=== PATIENT | male | born 1965 | race Hispanic/Latino ===

== ENCOUNTER 2022-03-23 11:37 | Outpatient (CLI) | payer OTHER, SELFPAY ==
--- NOTE | 2022-03-23 11:59 | ECG_ITS ---
Measurements Intervals [place] Rate: 76 P: MA: 0 QRS: 1 QRSD: 90 T: -4 QT: 380 QTc: 428 Interpretive Statements ATRIAL FIBRILLATION ABNORMAL RHYTHM ECG NO PREVIOUS ECG AVAILABLE FOR COMPARISON Electronically Signed On 03-23-2022 17:08:48 CDT by Carlos Gordon M.D.
[2022-03-23 12:45] LABS: Anion Gap 5 mmol/L (8-16); Blood Urea Nitrogen 15 mg/dL (9-20); Carbon Dioxide 25 mmol/L (22-30); Chloride 103 mmol/L (98-107); Estimated Glomerular Filt Rate > 60; Glucose 99 mg/dL (65-110); Potassium 4.2 mmol/L (3.4-5.0); Sodium 133 mmol/L (137-145)
== END 2022-03-23 11:38 | disposition home or self-care (01) ==
LOC: ANHSURGERY 11:41
PROVIDERS: Anesthesiology; PCP Family Medicine; Visit Provider Orthopaedic Surgery
DX: I10 Essential (primary) hypertension (principal); Z79.899 Other long term (current) drug therapy; Z01.818 Encounter for other preprocedural examination
CPT/HCPCS: 36415; 80048; 93005

== ENCOUNTER 2022-06-18 10:03 | Emergency (ER) | payer OTHER, SELFPAY ==
[2022-06-18 10:13] VITALS: BP 156/98; PULSE 80; RESP 16; TEMP 36.5; O2SAT 99
--- NOTE | 2022-06-18 11:44 | ED.DENTAL ---
HPI - Dental/Oral General Chief complaint: Dental/Oral Stated complaint: BLEEDING GUMS Time Seen by Provider: 06/18/22 10:19 Source: patient Mode of arrival: ambulatory Limitations: no limitations History of Present Illness HPI Narrative: 56-year-old male presents today with complaints of bleeding from a cracked tooth. Patient states he broke his tooth yesterday when he was chewing on something. He put some sort of paste over his tooth. Denies any pain. States that in the middle the night last night it started bleeding and has not stopped. Patient is currently on Eliquis for atrial fibrillation. No complaints of any other bleeding. Related Data Home Medications Medication Instructions Recorded Confirmed amlodipine 10 mg tablet 10 mg PO DAILY 03/18/22 03/18/22 apremilast 30 mg tablet (Otezla) 30 mg PO BID 03/18/22 03/18/22 folic acid 1 mg tablet 3 mg PO DAILY 03/18/22 03/18/22 hydrochlorothiazide 25 mg tablet 25 mg PO QAM 03/18/22 03/18/22 ibuprofen 600 mg tablet 600 mg PO QID PRN Pain 03/18/22 03/18/22 losartan 50 mg tablet 50 mg PO QAM 03/18/22 03/18/22 Allergies Allergy/AdvReac Type Severity Reaction Status Date / Time No Known Allergies Allergy Unverified 03/18/22 14:34 Review of Systems Review of Systems: CONSTITUTIONAL: Denies fever, chills, or sweats. EYES: Denies visual changes, redness, or discharge. ENT: Bleeding tooth. Denies rhinorrhea, congestion, sore throat, or otalgia. CARDIOVASCULAR: Denies chest pain, palpitations, or edema. RESPIRATORY: Denies cough or dyspnea. NEUROLOGIC: Denies headache, numbness, dizziness, or weakness. PSYCHIATRIC: Denies anxiety or depression. [facility] Social History Social History Smoking status: Never smoker Spiritual care concerns: No Exam Const: General: healthy appearing and no acute distress HENMT: Head: normal to inspection Ears: external ears normal Face and sinus: normal facial exam Teeth and gingiva: abnormal tooth and associated gingiva lower left third molar other (Bleeding noted at gum of tooth. Appears to be some paste in the tooth that patient has stuck there. Unable to remove. Unable to see if pulp was previously exposed. Tooth does appear fractured.) Eyes: Conjunctivae: conjunctivae normal Resp: Effort & Inspection: normal respiratory effort Cardio: Rate: regular rate Skin: General skin exam: normal color Neuro: General: patient oriented x3 Course Course Emergency Course: Bleeding slowed after surgicel applied. Patient and family instructed on removal after bleeding has completely stopped. All voiced understanding. Vital Signs Vital signs: Vital Signs Temperature 97.7 F 06/18/22 10:13 Pulse Rate 80 06/18/22 10:13 Respiratory Rate 16 06/18/22 10:13 Blood Pressure 156/98 H 06/18/22 10:13 Pulse Oximetry 99 06/18/22 10:13 Oxygen Delivery Room Air 06/18/22 10:13 Temperature 97.7 F 06/18/22 10:13 Pulse Rate 80 06/18/22 10:13 Respiratory Rate 16 06/18/22 10:13 Blood Pressure 156/98 H 06/18/22 10:13 Pulse Oximetry 99 06/18/22 10:13 Oxygen Delivery Room Air 06/18/22 10:13 MDM - Dental/Oral MDM Narrative Medical decision making narrative: 56-year-old male HPI as noted. Differentials as below. Patient currently on Eliquis for history of A. fib. Which may be due to the difficulty with getting bleeding to stop. Patient with cracked tooth. Bleeding was slowed with Surgicel. Patient to be discharged and instructed to remove when bleeding stops. Did instruct patient on what to do if rebleeding occurs. Patient is aware to follow-up with dentist JUANA. Differential Diagnosis Differential diagnosis: Likely dental caries, toothache, dental abscess and fracture of tooth Medical Records Attestation: I reviewed the patient's medical records. Discharge Plan Discharge Clinical Impression: Fracture of tooth, Toothache Patient Dispositio
[2022-06-18] MEDS: AMOXICILLIN/CLAVULANATE K 875-125 MG TAB 1 TABLET PO (12:47)
== END 2022-06-18 12:52 | disposition home or self-care (01) ==
PROVIDERS: Emergency Provider Nurse Practitioner Family; PCP Family Medicine
DX: K03.81 Cracked tooth (principal); I48.91 Unspecified atrial fibrillation; Z79.01 Long term (current) use of anticoagulants
CPT/HCPCS: 99283; A9270

== ENCOUNTER 2022-06-30 16:22 | Emergency (ER) | payer OTHER, SELFPAY ==
[2022-06-30] VITALS (11 sets, daily range): BP systolic 131–160; BP diastolic 87–96; PULSE 63–84; RESP 13–20; TEMP 37; O2SAT 98–100
--- NOTE | ~2022-06-30 | XR_ITS ---
XR chest 2V DATE: 06/30/2022 18:21 INDICATION: Left chest pain, numbness and tingling. Cold upper extremities. TECHNIQUE: PA and lateral views COMPARISON: None FINDINGS: Normal heart size. Is aortic tortuosity. No hilar or mediastinal enlargement. No pulmonary infiltrate or consolidation, pleural effusion or pulmonary vascular congestion or pneumo thorax is detected. Included skeletal structures are unremarkable. IMPRESSION: No active cardiopulmonary disease Reviewed, dictated and finalized at location B. 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
--- NOTE | 2022-06-30 16:27 | ECG_ITS ---
Measurements Intervals [place] Rate: 70 P: -1 FL: 185 QRS: 2 QRSD: 103 T: -3 QT: 382 QTc: 414 Interpretive Statements SINUS RHYTHM WITH OCCASIONAL SUPRAVENTRICULAR PREMATURE COMPLEXES COMPARED TO ECG 03/23/2022 12:27:08 SINUS RHYTHM NOW PRESENT Electronically Signed On 07-01-2022 14:46:25 [employer] by Solis Multani M.D.
[2022-06-30 16:47] LABS: Basophils Percent Auto 0.4 % (0.2-1.2); Eosinophils Absolute Auto 0.1 K/mm3 (0-0.3); Eosinophils Percent Auto 1.7 % (0-4.4); Hematocrit 45.1 % (42.0-52.0); Hemoglobin 15.5 g/dL (14.0-18.0); Immature Granulocyte Absolute 0.01 K/mm3 (0.00-0.031); Immature Granulocyte Percent A 0.1 % (0-0.5); Lymphocytes Absolute Auto 2.63 K/mm3 (0.9-3.2); Lymphocytes Percent Auto 36.9 % (18.3-44.2); Mean Corpuscular HGB Conc 34.4 g/dl (32-36); Mean Corpuscular Hemoglobin 30.6 pg (26-34); Mean Platelet Volume 9.5 fl (7.4-10.4); Monocytes Absolute Auto 0.4 K/mm3 (0.1-0.6); Monocytes Percent Auto 5.8 % (2.6-8.5); Neutrophils Absolute Auto 3.9 K/mm3 (1.3-6.7); Neutrophils Percent Auto 55.1 % (45.5-73.1); Platelet Count Result 211 k/mm3 (150-375); Red Blood Count 5.07 M/mm3 (4.6-6.20); Red Cell Distribution Width 12.9 % (11.5-14.5); White Blood Count 7.1 K/mm3 (4.5-10.0)
[2022-06-30 16:56] LABS: INR 1.1; Prothrombin Time 13.5 Seconds (11.1-14.7)
[2022-06-30 16:58] LABS: Partial Thromboplastin Time 34.5 SECONDS (22.3-36.8)
[2022-06-30 17:01] LABS: Alanine Aminotransferase 39 U/L (6-50); Albumin Level 5.1 g/dL (3.5-5.1); Alkaline Phosphatase 82 U/L (38-126); Anion Gap 9 mmol/L (8-16); Aspartate Amino Transferase 36 U/L (17-59); Bilirubin,Total 0.6 mg/dL (0.2-1.3); Blood Urea Nitrogen 16 mg/dL (9-20); Calcium 9.2 mg/dL (8.4-10.2); Carbon Dioxide 25 mmol/L (22-30); Chloride 101 mmol/L (98-107); Estimated CRCL calculation 92 ml/min; Estimated Glomerular Filt Rate > 60; Glucose 99 mg/dL (65-110); Lipase 76 U/L (23-300); Potassium 3.9 mmol/L (3.4-5.0); Sodium 135 mmol/L (137-145)
[2022-06-30 17:10] LABS: Troponin I < 0.012 ng/mL (0.000-0.034)
--- NOTE | 2022-06-30 19:00 | ED.CHESTPAIN ---
HPI - Chest Pain General Chief Complaint: Chest Pain Stated Complaint: mult c/o Time Seen by Provider: 06/30/22 18:26 Source: patient Mode of arrival: ambulatory Limitations: no limitations History of Present Illness HPI narrative: 56-year-old male presents today with complaints of dizziness and lightheadedness then chest pain and then numbness to the hands. Patient says he has had 3 episodes of this in the last week. Patient states today the episode lasted about 1 hour. Patient states he was sitting when it started. Patient does note tachypnea after he starts getting dizzy. Patient does endorse he was recently at [facility]. He is currently seeing a color sprayer from there. States within the last 2 weeks he had a test done where they had him walk and hooked him up to an EKG machine. I assume patient did have a stress test done. When patient was asked what the results were he stated he was not 100% sure but they set up follow-up appointment for him in 6 months. Patient denies any diaphoresis at the time. Patient denies any cough, runny nose, sore throat, nausea vomiting diarrhea, denies any recent illnesses. Related Data Home Medications Medication Instructions Recorded Confirmed amlodipine 10 mg tablet 10 mg PO DAILY 03/18/22 03/18/22 apremilast 30 mg tablet (Otezla) 30 mg PO BID 03/18/22 03/18/22 folic acid 1 mg tablet 3 mg PO DAILY 03/18/22 03/18/22 hydrochlorothiazide 25 mg tablet 25 mg PO QAM 03/18/22 03/18/22 ibuprofen 600 mg tablet 600 mg PO QID PRN Pain 03/18/22 03/18/22 losartan 50 mg tablet 50 mg PO QAM 03/18/22 03/18/22 Allergies Allergy/AdvReac Type Severity Reaction Status Date / Time No Known Allergies Allergy Verified 06/30/22 18:06 Review of Systems Review of Systems: CONSTITUTIONAL: Denies fever, chills, or sweats. EYES: Denies visual changes, redness, or discharge. ENT: Denies rhinorrhea, congestion, sore throat, or otalgia. CARDIOVASCULAR: Chest pain with palpitations. denies edema. RESPIRATORY: Denies cough or dyspnea. GASTROINTESTINAL: Denies abdominal pain, nausea, vomiting, or diarrhea. GENITOURINARY: Denies dysuria or hematuria. SKIN: Denies rash or itching. MUSCULOSKELETAL: Denies back pain, joint pain, or myalgia. NEUROLOGIC: Dizziness. Denies headache, numbness, or weakness. PSYCHIATRIC: Denies anxiety or depression. [facility] Social History Social History Smoking status: Never smoker Spiritual care concerns: No Exam Narrative: GENERAL: Well-appearing, well-nourished, and in no acute distress. HEAD: Normocephalic, atraumatic. EYES: PERRLA and EOMI. ENT: Nares clear, no rhinorrhea or epistaxis. Mucous membranes moist. Oropharynx without tonsillar hypertrophy exudate or other lesions. Bilateral TMs pearly hernandez nonbulging NECK: Supple. No adenopathy or masses. No carotid bruits or JVD CHEST: Clear to auscultation. No respiratory distress. No wheezes rales or rhonchi HEART: Regular rate and rhythm. No murmur heard. Normal peripheral pulses. ABDOMEN: Soft, nontender, nondistended, normal active bowel sounds. EXTREMITIES: Normal range of motion. No edema. SKIN: Warm, dry, no rash. NEURO: No focal deficits. Alert and oriented x3. PSYCH: Normal mood and affect. Course Reevaluation(s) Reevaluation #1: Patient with improvement after IV fluids. Patient has not had any chest pain or palpitations during his stay here. Patient will be discharged home. Patient does have an appointment with primary care tomorrow and is instructed to follow-up with cardiology 2. Date: 06/30/22 Time: 20:50 Vital Signs Vital signs: Vital Signs Temperature 98.6 F 06/30/22 16:25 Pulse Rate 78 06/30/22 16:25 Respiratory Rate 20 06/30/22 16:25 Blood Pressure 160/87 H 06/30/22 16:25 Pulse Oximetry 100 06/30/22 16:25 Oxygen Delivery Room Air 06/30/22 16:25 Temperature 98.6 F 06/30/22 16:25 Pulse Rate 69 06/30/22 19:
[2022-06-30] MEDS: SODIUM CHLORIDE 0.9% IV 1,000 ML 999 ML IV CONT (19:42)
[2022-06-30 20:18] LABS: Troponin I < 0.012 ng/mL (0.000-0.034)
== END 2022-06-30 21:03 | disposition home or self-care (01) ==
PROVIDERS: Emergency Medicine; Emergency Provider Nurse Practitioner Family; PCP Family Medicine
DX: R07.9 Chest pain, unspecified (principal)
CPT/HCPCS: 36415; 71046; 80053; 83690; 84484; 85025; 85610; 85730; 93005; 96360; 99284; J7030

== ENCOUNTER 2023-01-26 00:55 | Observation (INO) | payer OTHER, SELFPAY ==
[2023-01-26] VITALS (16 sets, daily range): BP systolic 120–169; BP diastolic 87–116; PULSE 58–85; RESP 12–20; TEMP 36.4–36.6; O2SAT 93–100; BMI 30.2
--- NOTE | ~2023-01-26 | CT_ITS ---
EXAMINATION: CT abdomen pelvis w con DATE: 01/26/2023 03:17 INDICATION: Right lower quadrant abdominal pain. Nausea. TECHNIQUE: Computed tomography (CT) of the abdomen and pelvis was performed with 100 mL Omnipaque 350 intravenous contrast. Automated exposure control and iterative reconstruction technique were employe d. The dose-length product was 881.86 mGy-cm. COMPARISON: None. FINDINGS: The visualized portions of the lung bases demonstrate mild atelectasis. No pleural effusion . Cardiomegaly is noted. No pericardial effusion. There are cysts in the liver measuring up to 2.4 cm . The gallbladder, spleen, pancreas, and adrenal glands are normal. There is a small area of cortical thinning of right kidney. There is a 1.3 cm cyst in left kidney. The prostate is mildly enlarged. Th ere are bilateral inguinal hernias containing fat. The appendix is fluid-filled and dilated to 12 mm. There are appendicoliths in the appendix. There is fat stranding around the appendix. These findings are consistent with acute appendicitis. There are no pathologically enlarged lymph nodes. There is n o free intraperitoneal fluid. There is severe lumbar spondylosis. IMPRESSION: 1. Acute appendicitis. I called this result to Dr. Burciaga. Reviewed, dictated and finalized at location E.
[2023-01-26 01:38] LABS: Basophils Percent Auto 0.3 % (0.2-1.2); Eosinophils Absolute Auto 0.2 K/mm3 (0-0.3); Eosinophils Percent Auto 1.7 % (0-4.4); Hemoglobin 14.4 g/dL (14.0-18.0); Immature Granulocyte Absolute 0.02 K/mm3 (0.00-0.031); Immature Granulocyte Percent A 0.2 % (0-0.5); Lymphocytes Absolute Auto 3.47 K/mm3 (0.9-3.2); Lymphocytes Percent Auto 39.3 % (18.3-44.2); Mean Corpuscular HGB Conc 33.5 g/dl (32-36); Mean Corpuscular Hemoglobin 30.5 pg (26-34); Mean Corpuscular Volume 91.1 fl (80-100); Mean Platelet Volume 10.2 fl (7.4-10.4); Monocytes Absolute Auto 0.7 K/mm3 (0.1-0.6); Monocytes Percent Auto 7.7 % (2.6-8.5); Neutrophils Absolute Auto 4.5 K/mm3 (1.3-6.7); Neutrophils Percent Auto 50.8 % (45.5-73.1); Platelet Count Result 202 k/mm3 (150-375); Red Blood Count 4.72 M/mm3 (4.6-6.20); Red Cell Distribution Width 13.8 % (11.5-14.5); White Blood Count 8.8 K/mm3 (4.5-10.0)
[2023-01-26 01:40] LABS: Appearance Urine Clear (Clear); Bacteria Urine None Seen /hpf; Bilirubin Urine Negative (Negative); Blood Urine Negative (Negative); Color Urine Yellow (Yellow); Glucose Urine UA Negative (Negative); Ketones Urine Negative (Negative); Leukocyte Esterase Ur Trace LEU/UL (Negative); Nitrate Urine Negative (Negative); Non Pathogenic Casts 0-2; Protein Urine Negative (Negative); RBC Urine 0-2 /hpf (0-2); Specific Grav Ur 1.015 (1.001-1.035); Squamous Epithelial Cell Urine None seen /hpf (Few); Urobilinogen Urine 0.2 mg/dL (<2.0); WBC Urine 0-5 /hpf; pH Urine 6.5 (5.0-9.0)
[2023-01-26 01:44] LABS: Alanine Aminotransferase 32 U/L (6-50); Albumin Level 4.6 g/dL (3.5-5.1); Alkaline Phosphatase 77 U/L (38-126); Anion Gap 6 mmol/L (8-16); Aspartate Amino Transferase 42 U/L (17-59); Bilirubin,Total 0.6 mg/dL (0.2-1.3); Blood Urea Nitrogen 23 mg/dL (9-20); Calcium 8.8 mg/dL (8.4-10.2); Carbon Dioxide 29 mmol/L (22-30); Chloride 103 mmol/L (98-107); Estimated CRCL calculation 79 ml/min; Estimated Glomerular Filt Rate > 60; Glucose 100 mg/dL (65-110); Lipase 69 U/L (23-300); Sodium 138 mmol/L (137-145)
[2023-01-26 01:48] LABS: Add Urine Microscopic? YES
[2023-01-26] MEDS: ACETAMINOPHEN 500 MG TABLET 1000 MG PO ×2 (01:53→09:28)
[2023-01-26] MEDS: SODIUM CHLORIDE 0.9% IV 2,000 ML 999 ML IV CONT (01:53)
[2023-01-26] MEDS: KETOROLAC 15 MG/ML VIAL (*BKC) IV PUSH ×2 (01:53→09:31)
--- NOTE | 2023-01-26 02:10 | ED.GENADULT ---
HPI - General Adult General Chief complaint: Abdominal Pain Stated complaint: abd pain Time Seen by Provider: 01/26/23 01:29 History of Present Illness HPI narrative: This is a 57-year-old male presenting ED with a chief complaint of right lower quadrant pain. Patient says he woke up from sleep with a stabbing pain in the right lower quadrant that radiates the rest of his abdomen. 8 out 10 intensity and constant. He has never experienced pain like this before there are no exacerbating or alleviating factors. He reports some nausea but no vomiting. No fevers chills chest pain difficulty breathing or diarrhea. No urinary symptoms. Related Data Home Medications Medication Instructions Recorded Confirmed amlodipine 10 mg tablet 10 mg PO DAILY 03/18/22 03/18/22 apremilast 30 mg tablet (Otezla) 30 mg PO BID 03/18/22 03/18/22 folic acid 1 mg tablet 3 mg PO DAILY 03/18/22 03/18/22 hydrochlorothiazide 25 mg tablet 25 mg PO QAM 03/18/22 03/18/22 ibuprofen 600 mg tablet 600 mg PO QID PRN Pain 03/18/22 03/18/22 losartan 50 mg tablet 50 mg PO QAM 03/18/22 03/18/22 Allergies Allergy/AdvReac Type Severity Reaction Status Date / Time No Known Allergies Allergy Verified 06/30/22 18:06 [facility] Social History Social History Smoking status: Never smoker Living arrangements: with family Spiritual care concerns: No Exam Narrative: APPEARANCE: No apparent distress. Head: atraumatic. EYES: EOMI, NOSE: Atraumatic NECK: Trachea midline RESPIRATORY: No increased rate of breathing , clear to auscultation CARDIOVASCULAR: RRR, ABDOMINAL: mild tenderness the right lower quadrant on deep palpation, the rest the abdomen is soft nontender no guarding rebound. MUSCULOSKELETAl: No obvious deformities NEURO: Alert. Moving 4/4 extremities SKIN:: Warm, dry. Normal color PSYCHIATRIC: Normal affect Course Vital Signs Vital signs: Vital Signs Temperature 97.9 F 01/26/23 01:01 Pulse Rate 62 01/26/23 01:01 Respiratory Rate 14 01/26/23 01:01 Blood Pressure 169/116 H 01/26/23 01:01 Pulse Oximetry 99 01/26/23 01:01 Oxygen Delivery Room Air 01/26/23 01:01 Temperature 97.9 F 01/26/23 01:01 Pulse Rate 58 L 01/26/23 04:31 Respiratory Rate 18 01/26/23 04:31 Blood Pressure 140/109 H 01/26/23 04:31 Pulse Oximetry 100 01/26/23 04:31 Oxygen Delivery Room Air 01/26/23 01:13 Medical Decision Making MDM Narrative Medical decision making narrative: -Presentation: 57-year-old male presenting with right lower quadrant abdominal pain. -DDX includes but is not limited to: appendicitis,, gas, UTI, gallbladder disease -Co-morbidities complicating care:Chronic pain, arthritis, hernia -Social determinants of health: patient is disabled due to chronic pain lives with his [place] -External Chart Review: none -Hx from independent Sources: [place] bedside -Independent interpretation of studies: CBC normal. Metabolic panel normal. Urine had trace leuk esterase. CT abdomen pelvis showed uncomplicated appendicitis. Patient has been started on Unasyn. -Discussion of Management/Consultants: Divine Suarez -Zeke tests considered but not ordered:None -Procedures: -Interventions: 2 L normal saline, 15 mg Toradol, Tylenol 1000mg, Zosyn -Shared decision making / Disposition: Patient will be admitted to the surgery service. -RX Vital Signs Vital Signs: Vital Signs Temperature 97.9 F 01/26/23 01:01 Pulse Rate 62 01/26/23 01:01 Respiratory Rate 14 01/26/23 01:01 Blood Pressure 169/116 H 01/26/23 01:01 Pulse Oximetry 99 01/26/23 01:01 Oxygen Delivery Room Air 01/26/23 01:01 Temperature 97.9 F 01/26/23 01:01 Pulse Rate 58 L 01/26/23 04:31 Respiratory Rate 18 01/26/23 04:31 Blood Pressure 140/109 H 01/26/23 04:31 Pulse Oximetry 100 01/26/23 04:31 Oxygen Delivery Room Air 01/26/23 01:13
[2023-01-26] MEDS: PIPERACILLN/TAZ 3.375GM/NS50ML 3.375 GM/50 ML BAG IVPB (05:58)
[2023-01-26] MEDS: LACTATED RINGERS 1,000 ML 125 ML IV CONT (07:24)
--- NOTE | 2023-01-26 08:14 | ADMGEN ---
This patient, Dominick Chapa, was admitted to 3 [facility] Surg Room 302-01. Patient/family oriented to hospital policies and general routines including ID bracelet, bed and alarms, visiting hours, pain management, procedures, bathroom and other care routines, personal items, smoking policy, room service/diet, and visiting hours. Information on how to activate the Rapid Response Team has been discussed. Patient/Family are encouraged to report perceived risks to care and to ask questions if they do not understand what they are told or what they should do.
--- NOTE | 2023-01-26 08:53 | WPDANESEPPF ---
Anes - Initial Pre Proc Eval Date/Time: 01/26/23 08:53 Surgeon: Erick Haskins DO Pre Op Diagnosis: Appendicitis Patient Data Age: 57 Gender: M Height: 1.65 m Weight: 82.5 kg Last Vital Signs Temp 36.6 C 01/26/23 01:01 Pulse 73 01/26/23 07:23 Resp 20 01/26/23 07:23 BP 146/95 H 01/26/23 07:23 Pulse Ox 99 01/26/23 07:23 O2 Del Method Room Air 01/26/23 01:13 Allergies Allergy/AdvReac Type Severity Reaction Status Date / Time No Known Allergies Allergy Verified 06/30/22 18:06 Home Medications Medication Instructions Recorded Confirmed Type amlodipine 10 mg tablet 10 mg PO DAILY 03/18/22 03/18/22 History apremilast 30 mg tablet (Otezla) 30 mg PO BID 03/18/22 03/18/22 History folic acid 1 mg tablet 3 mg PO DAILY 03/18/22 03/18/22 History hydrochlorothiazide 25 mg tablet 25 mg PO QAM 03/18/22 03/18/22 History ibuprofen 600 mg tablet 600 mg PO QID PRN Pain 03/18/22 03/18/22 History losartan 50 mg tablet 50 mg PO QAM 03/18/22 03/18/22 History amoxicillin 875 mg-potassium 1 tablet PO Q12H #20 tabs 06/18/22 Rx clavulanate 125 mg tablet Laboratory Tests 01/26/23 01/26/23 01:13 01:14 WBC 8.8 K/mm3 (4.5-10.0) RBC 4.72 M/mm3 (4.6-6.20) Hgb 14.4 g/dL (14.0-18.0) Hct 43.0 % (42.0-52.0) MCV 91.1 fl (80-100) MCH 30.5 pg (26-34) MCHC 33.5 g/dl (32-36) RDW 13.8 % (11.5-14.5) Plt Count 202 k/mm3 (150-375) MPV 10.2 fl (7.4-10.4) Immature Gran % (Auto) 0.2 % (0-0.5) Neut % (Auto) 50.8 % (45.5-73.1) Lymph % (Auto) 39.3 % (18.3-44.2) [place] % (Auto) 7.7 % (2.6-8.5) Eos % (Auto) 1.7 % (0-4.4) Baso % (Auto) 0.3 % (0.2-1.2) Lymph # (Auto) 3.47 H K/mm3 (0.9-3.2) [place] # (Auto) 0.7 H K/mm3 (0.1-0.6) Eos # (Auto) 0.2 K/mm3 (0-0.3) Baso # (Auto) 0.0 K/mm3 (0.0-0.1) Abs Immat Gran (auto) 0.02 K/mm3 (0.00-0.031) Absolute Neuts (auto) 4.5 K/mm3 (1.3-6.7) Absolute Nucleated RBC 0.0 K/mm3 (0.0-0.012) Nucleated RBC % 0.0 % (0.0-0.2) Sodium 138 mmol/L (137-145) Potassium 4.0 mmol/L (3.4-5.0) Chloride 103 mmol/L (98-107) Carbon Dioxide 29 mmol/L (22-30) Anion Gap 6 L mmol/L (8-16) BUN 23 H mg/dL (9-20) Creatinine 0.90 mg/dL (0.7-1.3) Estim Creat Clear Calc 79 ml/min Estimated GFR > 60 (59 - ) Glucose 100 mg/dL (65-110) Calcium 8.8 mg/dL (8.4-10.2) Total Bilirubin 0.6 mg/dL (0.2-1.3) AST 42 U/L (17-59) ALT 32 U/L (6-50) Alkaline Phosphatase 77 U/L (38-126) Total Protein 8.0 g/dL (6.3-8.2) Albumin 4.6 g/dL (3.5-5.1) Lipase 69 U/L (23-300) Urine Color Yellow (Yellow) Urine Appearance Clear (Clear) Urine pH 6.5 (5.0-9.0) Ur Specific [place] 1.015 (1.001-1.035) Urine Protein Negative mg/dL (Negative) Urine Glucose (UA) Negative mg/dL (Negative) Urine Ketones Negative mg/dL (Negative) Ur Blood (Man) Negative (Negative) Urine Nitrate Negative (Negative) Urine Bilirubin Negative (Negative) Urine Urobilinogen 0.2 mg/dL (<2.0) Leukocyte Esterase Rfl Trace H EMILI/UL (Negative) Urine RBC 0-2 /hpf (0-2) Urine WBC 0-5 /hpf Ur Squamous Epith Cells None seen /hpf (Few) Urine Bacteria None seen /hpf Urine Casts 0-2 Patient hx anesthesia problems: none Family hx anesthesia problems: none Results Review: All pre-operative results and documents have been reviewed as part of the pre-operative evaluation. [facility] Family History Family History Mother Hypertension Diabetes mellitus Social History Social History (Reviewed 01/26/23 @ 08:
--- NOTE | 2023-01-26 09:16 | WPDHPUPDATE1 ---
History and Physical Update Update Date/Time: 01/26/23 09:16 History and Physical has been reviewed, including an updated exam of the patient. There are NO changes in the patient's condition. Risks, benefits, and alternatives have been discussed and questions answered. Patient agrees to proceed with procedure.
--- NOTE | 2023-01-26 09:16 | PM.SD2 ---
Same Day Admit/Disch: HPI History of Present Illness Chief complaint: right lower quadrand pain Narrative: Dominick Chapa is a 57 year old male who presented to the emergency department this morning with right lower quadrant pain that started 1 day prior. He has had pain localized to the right lower quadrant since early yesterday morning. He denies any fevers or chills. He has had nausea but no vomiting. He has never experienced any symptoms like this before. In the emergency department he had normal white blood count CT showed evidence of acute appendicitis. He was started on Zosyn and admitted for further treatment. PENDING SALE TO [facility] Past Medical History Medical History (Updated 01/26/23 @ 09:22 by Erikc Haskins DO) Hypertension Psoriatic arthritis Surgical History Surgical History (Updated 01/26/23 @ 09:19 by Erick Haskins DO) History of back surgery Hx of right knee surgery Family History Family History Mother Hypertension Diabetes mellitus Social History Social History Smoking status: Former smoker Alcohol intake: never Substance use: never Lack of Transportation: No Lack of Food: Never True Current Housing: I Have Housing Concerned About Future Housing: No Difficulty Paying Gas/Electric Bills: YES Difficulty Paying for Meds: No Currently Unemployed: No Education: Grade School Difficulty w/ Childcare or Family Care: No Living arrangements: with family Spiritual care concerns: No Same Day Admit/Disch: Med Pre-admit Medications Home Medications Medication Instructions Recorded Confirmed Type amlodipine 10 mg tablet 10 mg PO DAILY 03/18/22 03/18/22 History apremilast 30 mg tablet (Otezla) 30 mg PO BID 03/18/22 03/18/22 History folic acid 1 mg tablet 3 mg PO DAILY 03/18/22 03/18/22 History hydrochlorothiazide 25 mg tablet 25 mg PO QAM 03/18/22 03/18/22 History ibuprofen 600 mg tablet 600 mg PO QID PRN Pain 03/18/22 03/18/22 History losartan 50 mg tablet 50 mg PO QAM 03/18/22 03/18/22 History amoxicillin 875 mg-potassium 1 tablet PO Q12H #20 tabs 06/18/22 Rx clavulanate 125 mg tablet hydrocodone 5 mg-acetaminophen 325 1 tablet PO Q4H PRN pain #10 tabs 01/26/23 Rx mg tablet Exam Const: General: alert; No acute distress Orientation/consciousness: patient oriented x3 Limitations: no limitations HENMT: Head: normocephalic and atraumatic Ears: hearing grossly normal bilaterally Face/Nose/Sinus: Normal external nose present and Normal nares present Mouth: Yes Normal oral and palatal mucosa present and Yes moist mucous membranes Eyes: General: appearance normal, both eyes and all related structures Conjunctivae: conjunctivae normal Sclera: sclerae normal Pupils: Equal, round and reactive pupils present EOM: EOMs intact bilaterally Neck: Neck: normal visual inspection, full ROM, no lymphadenopathy, supple and no JVD Lymphatic: no lymphadenopathy noted Chest: Chest palpation & inspection: normal inspection of the chest Resp: Effort & Inspection: normal respiratory effort and able to speak in complete sentences Auscultation: clear to auscultation bilaterally Percussion: percussion normal Cardio: Jugular venous distension: no JVD Rate: regular rate Rhythm: regular rhythm Heart sounds: S1 normal heart sound present and S2 normal heart sound present Peripheral pulses: Peripheral pulses 2+ throughout GI: Inspection: normal to inspection GI Palp: Yes abdominal tenderness, Yes Soft to palpation, Yes Tenderness to palpation present (GI) (RLQ), Yes Guarding due to palpation present (GI) (RLQ), No Hernia present and No Rebound tenderness present Percussion: Yes normal to percussion Auscultation: normal bowel sounds : General: Yes no CVA tenderness Back/Spine/Pelvis: Back: no CVA tenderness Skin: General skin exam: normal color and dry skin Neuro
[2023-01-26] MEDS: LACTATED RINGERS 1,000 ML 30 ML IV CONT (10:44)
--- NOTE | 2023-01-26 10:52 | W.PM.PROC2 ---
Procedure Note - Detailed Date of Procedure 01/26/23 Pre-op Diagnosis Acute appendicitis Post-op Diagnosis Same Procedure Performed Laparoscopic appendectomy Surgeon Erick Haskins, DO Anesthesia General and Local (0.5% bupivicaine with epinephrine) Indications This is a 57-year-old man who presented to the emergency department this morning with right lower quadrant pain that started yesterday. He denied any fevers or chills. CT showed evidence of acute appendicitis. Discussions were made with the patient about treatment options and decision was made to proceed with urgent laparoscopic appendectomy, possible open. Findings Laparoscopic appendectomy was performed. The appendix was dilated and inflamed. There was mild exudate around the appendix and some reactive inflammation of the ileum right next to it. There did not appear to be any evidence of perforation or abscess. Base of the appendix appeared healthy and viable. The appendix was removed and sent to the lab for pathology. Description of Procedure Procedure as well as risks, benefits, and alternatives were explained to the patient. The patient agreed to proceed. Written consent was obtained and placed in chart prior to procedure. The patient was brought back to surgical suite. He was placed supine on operating table. Time-out was done to confirm the patient and procedure. The patient was then intubated by the Anesthesia Department. His abdomen was prepped and draped in sterile fashion using chlorhexidine prep. A 5 mm incision was made just to the left of the patient's umbilicus and a 5 mm Optiview trocar was advanced through the abdominal layers under direct visualization. Once inside the peritoneal cavity, carbon dioxide insufflation was used to create a pneumoperitoneum. The camera was inserted and the abdomen was inspected. No immediate abnormalities were identified. The patient was then placed in slight Trendelenburg position and rotated to the left. A 5 mm incision was made in the suprapubic region in midline and a 5 mm trocar was inserted under direct visualization. A 12 mm incision was made in the left lower quadrant and a 12 mm trocar was inserted under direct visualization. The right lower quadrant was carefully inspected. The cecum was identified and then this was traced back to the appendix. The appendix was identified and grasped at the mesoappendix and lifted anteriorly. Careful blunt dissection was carried out at the base of the appendix through the mesoappendix using a [place] grasper. An Endo-IMAN 45 mm blue load stapler was then advanced across the base of the appendix and clamped and fired. A white reload was then clamped across the mesoappendix and fired. This freed up our appendix completely. It was then placed in an EndoCatch bag and removed through the left lower quadrant port. The staple lines were then inspected. Hemostasis appeared adequate and the staple lines appeared secure. The area was then irrigated with sterile saline. The pelvis was then carefully inspected and irrigated with sterile saline as well and the remainder of the abdomen was carefully inspected. The patient was then flattened out in bed. One final inspection was made around the abdominal cavity and no other abnormalities were seen. The left lower quadrant port was removed and a Booker-Francoise cone was used to approximate the fascia with an 0 Vicryl simple interrupted suture. The remaining ports were then removed under direct visualization. The camera was removed and the pneumoperitoneum was released. 0.5% bupivacaine with epinephrine was infiltrated locally around each of the incisions. The skin of the incisions was then approximated using 4-0 Monocryl subcuticular suture and Exofin glue was applied on top. The patient was then awakened from anesthesia, extubated, and transferred to Recovery. Estimated Blood Loss -5.0 Urine Output 300 Pathology Yes (Appendix) Complications No imme
--- NOTE | 2023-01-26 15:18 | PC.NURSE ---
Pt had appendectomy done today. Pt tolerated well. Pt was able to tolerate food and ambulated the halls without any pain. Pt reports pain is much better than before the procedure. Pts IV was removed with tip intact. Pt tolerated well. Pt participated and contributed in plan of care. Pt refused project lead. Pt verbalized understanding when going over consent. Pt states that he had no questions. Pt verbalized understanding when going over discharge instructions. Pt was monitored for any changes in status while here.
== END 2023-01-26 15:15 | disposition home or self-care (01) ==
LOC: ANHED 05:53 → ANH3MEDSUR 07:00
PROVIDERS: Admitting Provider Surgery; Emergency Provider Emergency Medicine; PCP Family Medicine; Visit Provider Surgery
PROC: 0DTJ4ZZ Resection of Appendix, Percutaneous Endoscopic Approach (ICD-10-PCS; CPT 44970; principal; 2023-01-26 10:30)
DX: K35.80 Unspecified acute appendicitis (principal); J98.11 Atelectasis; N28.1 Cyst of kidney, acquired; N40.0 Benign prostatic hyperplasia without lower urinary tract symptoms; I11.9 Hypertensive heart disease without heart failure; K40.20 Bilateral inguinal hernia, without obstruction or gangrene, not specified as recurrent; L40.50 Arthropathic psoriasis, unspecified; M47.816 Spondylosis without myelopathy or radiculopathy, lumbar region; Z79.1 Long term (current) use of non-steroidal anti-inflammatories (NSAID); Z79.891 Long term (current) use of opiate analgesic; Z79.899 Other long term (current) drug therapy; Z87.891 Personal history of nicotine dependence
CPT/HCPCS: 44970; 36415; 74177; 80053; 81001; 83690; 85025; 88304; 96361; 96365; 96375; 99285; A9270; G0378; G0379; J1100; J1885; J2250; J2270; J2405; J2543; J2704; J7030; J7120; Q9967

== ENCOUNTER 2023-04-29 07:39 | Emergency (ER) | payer BC, SELFPAY ==
--- NOTE | ~2023-04-29 | XR_ITS ---
Clinical Indication: Chest pain PA and lateral views of the chest: Comparison: 06/30/2022 Findings: The lungs are clear, without evidence of focal consolidation or pleural effusion. Cardiome diastinal silhouette is within normal limits. Bones and soft tissues are unremarkable. Impression: Normal chest. Reviewed, dictated and finalized at location . Impression: Normal chest.
--- NOTE | 2023-04-29 07:41 | ECG_ITS ---
Measurements Intervals [place] Rate: 77 P: SD: 0 QRS: 18 QRSD: 90 T: 19 QT: 372 QTc: 423 Interpretive Statements ATRIAL FIBRILLATION ABNORMAL RHYTHM ECG COMPARED TO ECG 06/30/2022 16:32:10 ATRIAL FIBRILLATION NOW PRESENT Electronically Signed On 04-29-2023 12:45:15 CDT by Solis Multani M.D.
[2023-04-29 07:55] VITALS: BP 142/102; PULSE 75; RESP 16; TEMP 36.7; O2SAT 99
[2023-04-29 08:16] LABS: Basophils Percent Auto 0.5 % (0.2-1.2); Eosinophils Absolute Auto 0.1 K/mm3 (0-0.3); Eosinophils Percent Auto 1.4 % (0-4.4); Hematocrit 47.8 % (42.0-52.0); Hemoglobin 15.8 g/dL (14.0-18.0); Immature Granulocyte Absolute 0.02 K/mm3 (0.00-0.031); Immature Granulocyte Percent A 0.3 % (0-0.5); Lymphocytes Absolute Auto 2.05 K/mm3 (0.9-3.2); Lymphocytes Percent Auto 32.1 % (18.3-44.2); Mean Corpuscular HGB Conc 33.1 g/dl (32-36); Mean Corpuscular Hemoglobin 30.2 pg (26-34); Mean Corpuscular Volume 91.4 fl (80-100); Mean Platelet Volume 9.8 fl (7.4-10.4); Monocytes Absolute Auto 0.4 K/mm3 (0.1-0.6); Monocytes Percent Auto 6.7 % (2.6-8.5); Neutrophils Absolute Auto 3.8 K/mm3 (1.3-6.7); Platelet Count Result 199 k/mm3 (150-375); Red Blood Count 5.23 M/mm3 (4.6-6.20); Red Cell Distribution Width 13.2 % (11.5-14.5); White Blood Count 6.4 K/mm3 (4.5-10.0)
[2023-04-29 08:27] LABS: Alanine Aminotransferase 31 U/L (6-50); Albumin Level 4.7 g/dL (3.5-5.1); Alkaline Phosphatase 84 U/L (38-126); Anion Gap 8 mmol/L (8-16); Aspartate Amino Transferase 30 U/L (17-59); Blood Urea Nitrogen 14 mg/dL (9-20); Calcium 9.1 mg/dL (8.4-10.2); Carbon Dioxide 26 mmol/L (22-30); Chloride 105 mmol/L (98-107); Estimated CRCL calculation 78 ml/min; Estimated Glomerular Filt Rate > 60; Glucose 104 mg/dL (65-110); Lipase 61 U/L (23-300); Potassium 4.2 mmol/L (3.4-5.0); Sodium 139 mmol/L (137-145)
[2023-04-29 08:29] LABS: INR 1.2; Prothrombin Time 15.3 Seconds (11.1-14.7)
[2023-04-29 08:30] LABS: Partial Thromboplastin Time 33.8 SECONDS (22.3-36.8)
[2023-04-29 08:39] LABS: Troponin I < 0.012 ng/mL (0.000-0.034)
[2023-04-29] MEDS: ASPIRIN 81 MG CHEWABLE TABLET 324 MG PO (08:41)
[2023-04-29 11:04] LABS: Troponin I < 0.012 ng/mL (0.000-0.034)
--- NOTE | 2023-04-29 12:21 | ED.CHESTPAIN ---
HPI - Chest Pain General Chief Complaint: Chest Pain Stated Complaint: Left chest pain and left eye red Time Seen by Provider: 04/29/23 08:04 History of Present Illness HPI narrative: This is a 57-year-old male, past history of A-fib on Eliquis, who presents emergency department complaining of 2 episodes of sharp, stabbing-like left chest pain, rated 2-3/10 this morning. The patient states he was in his usual state of health, lying down when he felt the pain. He states he is also been recently coughing and noticed redness of his left eye. He denies pain, or change/loss of vision. Related Data Home Medications Medication Instructions Recorded Confirmed amlodipine 10 mg tablet 10 mg PO DAILY 03/18/22 02/08/23 apremilast 30 mg tablet (Otezla) 30 mg PO BID 03/18/22 02/08/23 folic acid 1 mg tablet 3 mg PO DAILY 03/18/22 02/08/23 hydrochlorothiazide 25 mg tablet 25 mg PO QAM 03/18/22 02/08/23 ibuprofen 600 mg tablet 600 mg PO QID PRN Pain 03/18/22 02/08/23 losartan 50 mg tablet 50 mg PO QAM 03/18/22 02/08/23 Allergies Allergy/AdvReac Type Severity Reaction Status Date / Time No Known Allergies Allergy Verified 02/08/23 10:58 Review of Systems Review of Systems: CONSTITUTIONAL: Denies fever, chills, or sweats. EYES: Left eye redness denies visual changes, or discharge. CARDIOVASCULAR: Chest pain denies palpitations, or edema. RESPIRATORY: Denies cough or dyspnea. GASTROINTESTINAL: Denies abdominal pain, nausea, vomiting, or diarrhea. GENITOURINARY: Denies dysuria or hematuria. SKIN: Denies rash or itching. MUSCULOSKELETAL: Denies back pain, joint pain, or myalgia. NEUROLOGIC: Denies headache, numbness, dizziness, or weakness. PSYCHIATRIC: Denies anxiety or depression. [facility] Past Medical History Medical History (Updated 04/30/23 @ 00:08 by Beth Seo) Atrial fibrillation Hypertension Psoriatic arthritis Surgical History Surgical History History of back surgery History of laparoscopic appendectomy 01/26/23 Hx of right knee surgery Family History Family History Mother Hypertension Diabetes mellitus Social History Social History Smoking status: Former smoker Alcohol intake: never Substance use: never Lack of Transportation: No Lack of Food: Never True Current Housing: I Have Housing Concerned About Future Housing: No Difficulty Paying Gas/Electric Bills: YES Difficulty Paying for Meds: No Currently Unemployed: No Education: Grade School Difficulty w/ Childcare or Family Care: No Living arrangements: with family Spiritual care concerns: No Exam Narrative: GENERAL: Well-developed, well-nourished, and in no acute distress. HEAD: Normocephalic, atraumatic. EYES: The right eye is false. Left pupil 3 mm round and reactive to light and accommodation. Extraocular muscles on the left intact. Subconjunctival hemorrhage noted in the left eye. CHEST: Clear to auscultation. No respiratory distress. No wheezes rales or rhonchi HEART: Regular rate and rhythm. No murmur heard. Normal peripheral pulses. ABDOMEN: Soft, nontender, nondistended, normal active bowel sounds. EXTREMITIES: Normal range of motion. No edema. SKIN: Warm, dry, no rash. NEURO: Alert and oriented x3. Moving all 4 limbs purposefully. PSYCH: Normal mood and affect. Course Course Emergency Course: 08:30 - Initial troponin negative. EKG demonstrates A-fib but is not concerning for ischemia. heart score 3. Considering the patient's history of A-fib, will repeat troponin with anticipation of discharge. CBC unremarkable. INR 1.2. Chemistries within normal limits. Chest x-ray unremarkable. 12:20 - Repeat troponin negative. Will discharge home with recommendation for primary care follow up. I suspect subconjunctival hemorrhage. Discusse
[2023-04-29 12:49] VITALS: BP 128/97; PULSE 72; RESP 16; O2SAT 100
== END 2023-04-29 12:50 | disposition home or self-care (01) ==
PROVIDERS: Emergency Provider Preventive Medicine Aerospace Medicine; PCP Family Medicine
DX: R07.89 Other chest pain (principal); H11.32 Conjunctival hemorrhage, left eye; I48.91 Unspecified atrial fibrillation; I10 Essential (primary) hypertension; L40.50 Arthropathic psoriasis, unspecified; Z97.0 Presence of artificial eye; Z87.891 Personal history of nicotine dependence; Z79.01 Long term (current) use of anticoagulants
CPT/HCPCS: 36415; 71046; 80053; 83690; 84484; 85025; 85610; 85730; 93005; 99284; A9270